=== PATIENT | female | born 1935 | race Caucasian/White ===

== ENCOUNTER → 2018-08-19 | Outpatient (CLI) | payer MEDICARE, BC ==
[~2018-08-19] MED LIST: AMLO2.5T3 PO; ANAS1TAB2 PO; LIDO2.5C15 EX; VITA100066 PO; VITA2000 PO
--- NOTE | 2018-08-19 18:37 | ECHO ---
DATE OF PROCEDURE: 08/19/2018 Date of : 1935 Age: 82 Gender: Female Height: 64 inches Weight: 180 pounds Body surface area: 1.87 meters squared Outpatient. REFERRING PROVIDER: [place] Nurse Practitioner INDICATION: Breast cancer. Potential cardiotoxic chemotherapy. MEASUREMENTS: 2D measurements: RV: 4.2 cm LV: 4.3 cm Septum: 0.9 cm Posterior wall: 0.9 cm Aortic root: 2.9 cm LA: 3.2 cm LVEF: 65% Doppler measurements: AV: 0.92 meters per second LVOT: 0.72 meters per second LVOT diameter: 1.8 cm MV-E: 67, A: 79, EA ratio: 0.8 Early mitral deceleration time: 218 milliseconds E prime: 5.9, A prime: 7.5, E/E prime ratio: 11.4 Pulmonary capillary wedge pressure: 15.9 mmHg PV: 0.7 meters per second Pulmonary artery acceleration time: 100 milliseconds RVSP: 37 mmHg IVC: 1.4 cm COMMENTS: Normal sinus rhythm without intraventricular conduction disturbance. M-mode and two-dimensional echocardiography was performed with pulsed, continuous wave, color flow and tissue Doppler studies. Normal left ventricular size, wall thickness and wall motion. Normal left atrial size with evidence of an impairment of left ventricular (LV) diastolic function and slightly elevated estimated mean left atrial pressure. Right heart chamber sizes were upper limits of normal with normal wall motion and Doppler evidence of mild pulmonary hypertension. Mild aortic valvular sclerosis without functional abnormality. Normal aortic root size. Mild degenerative changes of the mitral valvular apparatus with mild insufficiency. Normal appearing tricuspid valve with mild insufficiency. No apparent intracardiac mass or pericardial effusion.
== END ==
LOC: M CARPUL 09:17
PROVIDERS: ATTEND Nurse Practitioner Family
DX: C50.919 Malignant neoplasm of unspecified site of unspecified female breast (principal); I08.0 Rheumatic disorders of both mitral and aortic valves

== ENCOUNTER → 2020-08-23 | Outpatient (CLI) | payer MEDICARE, BC ==
--- NOTE | 2020-08-23 11:16 | REPMRS ---
Patient History The patient states she had a clinical breast exam in August 2020. Patient is postmenopausal and has history of cancer in the left breast at age 82. Family history of prostate cancer at age 70 in father. Digital Woman Screen Mammo: August 23, 2020 - Exam #: [id number] Bilateral CC and MLO view(s) were taken. Technologist: RT Toi Prior study comparison: May 23, 2019, bilateral digital mammo screening bilat, performed at [facility]. April 01, 2018, digital mammo diagnostic bilateral, performed at Dr. Tal Elizalde [facility]. FINDINGS: There are scattered fibroglandular densities. The Volpara volumetric breast density category is:B. There are stable post treatment changes in the left breast. There has been no change in the appearance of the mammogram from the prior studies. There is a mild amount of scattered fibroglandular density which is fairly symmetric. There is no interval development of dominant mass, architectural distortion, or grouped microcalcification suggestive of malignancy. 3-D tomosynthesis shows no additional findings. Assessment: BI-RADS/ACR category 2 mammogram. Benign Findings. Recommendation Routine screening mammogram of both breasts in 1 year (for women over age 40). This mammogram was interpreted with the aid of an FDA-approved computer-aided dectection system. Electronically Signed By: Shaggy Brush MD 08/23/20 [id number]
== END ==
LOC: M WHC 09:49
PROVIDERS: ATTEND Specialist
DX: Z12.31 Encounter for screening mammogram for malignant neoplasm of breast (principal); Z78.0 Asymptomatic menopausal state; Z85.3 Personal history of malignant neoplasm of breast

== ENCOUNTER → 2020-09-30 | Outpatient (CLI) | payer MEDICARE, BC ==
[~2020-09-30] MED LIST changes: +LIDO1CRE42 EX; -LIDO2.5C15 EX
--- NOTE | 2020-09-30 14:10 | DEXAMM ---
INDICATION: BREAST CA,ON AI. COMPARISON: Comparison study September 27, 2003 and September 03, 1999.. TECHNIQUE: Bone density was measured using dual-energy x-ray absorptionmetry (DEXA). FINDINGS: AP SPINE L1-L4 BMD 1.122 g/cm2 Young Adult T-Score -0.6 Age Matched Z-Score 1.3. LT FEMUR, TOTAL BMD 0.783 g/cm2 Young Adult T-Score -1.8 Age Matched Z-Score 0.4. LT NECK BMD 0.776 g/cm2 Young Adult T-Score -1.9 Age Matched Z-Score 0.4. RT FEMUR, TOTAL BMD 0.710 g/cm2 Young Adult T-Score -2.4 Age Matched Z-Score -0.2. RT NECK BMD 0.742 g/cm2 Young Adult T-Score -2.1 Age Matched Z-Score 0.1. IMPRESSION: There is normal bone density of the spine. There is low bone density of the left hip. There is low bone density of the right hip. The density of the spine has increased 2.6% since the initial exam on September 03, 1999. The density of the spine increased 2.4% since most recent exam on September 27, 2003. The density of the left hip has decreased 15.1% since initial exam on September 03, 1999. The density of the left hip has decreased 15.9% since most recent exam on September 27, 2003. The density of the right hip has decreased 20.9% since the initial exam on September 03, 1999. The density of the right hip has decreased 21.0% since the most recent exam on September 27, 2003. FOLLOW-UP: Recommendation for the next bone density exam: 2 years. <Electronically signed by Shaggy rBush > 09/30/20 [id number]
== END ==
LOC: M WHC 11:14
PROVIDERS: ATTEND Specialist
DX: C50.912 Malignant neoplasm of unspecified site of left female breast (principal); Z79.811 Long term (current) use of aromatase inhibitors

== ENCOUNTER → 2021-09-17 | Outpatient (CLI) | payer MEDICARE, BC | LOC: M WHC 10:52 | PROVIDERS: ATTEND Specialist | DX: Z12.31 Encounter for screening mammogram for malignant neoplasm of breast (principal); Z85.3 Personal history of malignant neoplasm of breast; Z78.0 Asymptomatic menopausal state ==

== ENCOUNTER → 2022-10-01 | Outpatient (CLI) | payer MEDICARE, BC ==
[~2022-10-01] MED LIST changes: +CALC500C16 PO; +NOXI1TAB PO
== END ==
LOC: M WHC 10:33
PROVIDERS: ATTEND Nurse Practitioner
DX: Z12.31 Encounter for screening mammogram for malignant neoplasm of breast (principal); M85.851 Other specified disorders of bone density and structure, right thigh; M85.852 Other specified disorders of bone density and structure, left thigh; Z85.3 Personal history of malignant neoplasm of breast

== ENCOUNTER 2023-08-26 11:22 | Emergency (ER) | payer MEDICARE ==
[~2023-08-26] VITALS: Ht 162.6 cm; Wt 69.4 kg
[~2023-08-26 11:22] MED LIST changes: -LIDO1CRE42 EX; +LIDO30CR18 EX
[2023-08-26 11:54] LABS: VENOUS BASE EXCESS 1.1 (-2.0-2.0); VENOUS HCO3 27.7 MMOL/L (23.0-27.0); VENOUS O2 SATURATION 34.6 % (60.0-80.0); VENOUS PARTIAL PRESSURE CO2 52.4 mmHg (38.0-50.0); VENOUS PH 7.341 UNITS (7.330-7.430); VENOUS TOTAL CO2 29.3 MMOL/L (24.0-28.0)
[2023-08-26 11:59] LABS: BASO # 0.1 10^3/uL (0.0-0.2); BASO % 0.9 % (0.0-1.0); EOS % 0.2 % (0.0-3.0); HEMATOCRIT 40.4 % (36.0-47.0); HEMOGLOBIN 12.5 g/dl (12.0-15.5); LYMPH # 0.6 10^3/uL (1.5-5.0); LYMPH % 7.3 % (24.0-44.0); MEAN CORPUSCULAR HEMOGLOBIN 26.8 pg (27.0-33.0); MEAN CORPUSCULAR HGB CONC 30.9 g/dl (32.0-36.5); MEAN CORPUSCULAR VOLUME 86.7 fl (80.0-96.0); MONO # 0.6 10^3/uL (0.0-0.8); MONO % 7.1 % (2.0-8.0); NEUTROPHILS # 6.8 10^3/uL (1.5-8.5); NEUTROPHILS % 83.2 % (36.0-66.0); PLATELET COUNT, AUTOMATED 350 10^3/uL (150-450); RED BLOOD COUNT 4.66 10^6/uL (4.00-5.40); WHITE BLOOD COUNT 8.2 10^3/uL (4.0-10.0)
[2023-08-26 12:30] LABS: BLOOD UREA NITROGEN 9 MG/DL (9-23); CALCIUM LEVEL 9.6 MG/DL (8.3-10.6); CARBON DIOXIDE LEVEL 29 MMOL/L (20-31); CHLORIDE LEVEL 105 MMOL/L (98-107); CREATININE FOR GFR 0.89 MG/DL (0.55-1.30); GLOMERULAR FILTRATION RATE > 60.0 (>32); GLUCOSE, FASTING 110 MG/DL (74-106); POTASSIUM SERUM 4.3 MMOL/L (3.5-5.1); SODIUM LEVEL 138 MMOL/L (136-145)
[2023-08-26 12:32] LABS: FREE T4 1.06 NG/DL (0.89-1.76); THYROID STIMULATING HORMONE 1.979 uIU/ML (0.55-4.78)
[2023-08-26 14:17] LABS: CK-MB VALUE MASS < 1.0 NG/ML (<3.6)
[2023-08-26 14:19] LABS: ALBUMIN 2.7 G/DL (3.2-5.2); ALKALINE PHOSPHATASE 102 U/L (46-116); ALT/SGPT 10 U/L (7.0-40); AST/SGOT 12 U/L (<34); BILIRUBIN,DIRECT 0.3 MG/DL (<0.4); BILIRUBIN,TOTAL 0.7 MG/DL (0.3-1.2); CPK CREATINE PHOSPHOKINASE 39 U/L (34-145); MB/CK RELATIVE INDEX 2.56 (< OR =4); TOTAL PROTEIN 5.8 G/DL (5.7-8.2)
[2023-08-26 16:14] LABS: CK-MB VALUE MASS < 1.0 NG/ML (<3.6)
[2023-08-26 16:16] LABS: CPK CREATINE PHOSPHOKINASE 47 U/L (34-145); MB/CK RELATIVE INDEX 2.12 (< OR =4)
[2023-08-26 16:30] VITALS: BP 150/73
[2023-08-26 16:31] VITALS: TEMP 97.6; O2SAT 96
[2023-08-26] MEDS ORDERED: HOLTER MONITOR XX (16:39)
== END 2023-08-26 16:52 | disposition home or self-care (01) ==
LOC: EDBD 11:22 → M ED 11:22
DX: R55 Syncope and collapse (principal); I10 Essential (primary) hypertension

== ENCOUNTER → 2023-09-03 | Outpatient (CLI) | payer MEDICARE, BC ==
[~2023-09-03] MED LIST changes: +HOLTER MONITOR XX
== END ==
LOC: M RAD 10:19
PROVIDERS: ATTEND Nurse Practitioner Family
DX: K76.0 Fatty (change of) liver, not elsewhere classified (principal); N28.1 Cyst of kidney, acquired

== ENCOUNTER → 2023-09-08 | Outpatient (CLI) | payer MEDICARE, BC ==
[~2023-09-08] MED LIST changes: +ISOVUE-370 76% 100ML VIAL As Ordered ONE
== END ==
LOC: M RAD 14:52
PROVIDERS: ATTEND Nurse Practitioner Family
DX: K76.9 Liver disease, unspecified (principal); K83.8 Other specified diseases of biliary tract; N13.39 Other hydronephrosis; Z90.49 Acquired absence of other specified parts of digestive tract
CPT/HCPCS: 74170; Q9967

== ENCOUNTER → 2023-09-15 | Outpatient (CLI) | payer MEDICARE, BC ==
[~2023-09-15] MED LIST changes: -ISOVUE-370 76% 100ML VIAL As Ordered ONE; +PROHANCE 279.3MG/ML 15ML VIAL As Ordered ONE
== END ==
LOC: M RAD 16:27
PROVIDERS: ATTEND Nurse Practitioner Family
DX: R93.2 Abnormal findings on diagnostic imaging of liver and biliary tract (principal); K76.0 Fatty (change of) liver, not elsewhere classified; Z90.49 Acquired absence of other specified parts of digestive tract; N28.1 Cyst of kidney, acquired; Z85.3 Personal history of malignant neoplasm of breast; K76.89 Other specified diseases of liver
CPT/HCPCS: 74183; A9576

== ENCOUNTER → 2023-10-07 | Outpatient (CLI) | payer MEDICARE, BC ==
[~2023-10-07] MED LIST changes: -PROHANCE 279.3MG/ML 15ML VIAL As Ordered ONE
== END ==
LOC: M WHC 16:53
PROVIDERS: ATTEND Specialist
DX: Z12.31 Encounter for screening mammogram for malignant neoplasm of breast (principal)

== ENCOUNTER → 2023-11-05 | Outpatient (CLI) | payer MEDICARE, BC ==
[~2023-11-05] MED LIST changes: +LIDOCAINE 1% MDV 20ML VIAL As Ordered ONE
[2023-11-05 08:00] VITALS: BP 143/78; TEMP 97.1; O2SAT 96
== END ==
LOC: M IRPRO 07:54
PROVIDERS: ATTEND Specialist
DX: D37.6 Neoplasm of uncertain behavior of liver, gallbladder and bile ducts (principal); Z85.3 Personal history of malignant neoplasm of breast